=== PATIENT | female | born 1985 | race Caucasian/White ===

== ENCOUNTER 2018-07-18 19:14 | Emergency (ER) | payer OTHER, MEDICAID, SELFPAY ==
[2018-07-18 19:37] VITALS: BP 156/103; PULSE 122; RESP 16; TEMP 36.4; O2SAT 100; BMI 57.7
--- NOTE | 2018-07-18 19:46 | DI.CT.S_ITS ---
PROCEDURE: CT HEAD/BRAIN WO CON INDICATIONS: sudden headache,dizzy,blurred vision TECHNIQUE: Noncontrast 4.5 mm thick angled axial sections acquired from the foramen magnum to the vertex, with coronal and sagittal reformats. For radiation dose reduction, the following was used: automated exposure control, adjustment of mA and/or kV according to patient size. COMPARISON: None. FINDINGS: Image quality: Excellent. CSF spaces: Basal cisterns are patent. No extra-axial fluid collections. Ventricles are normal in size and shape. Brain: No midline shift. No intracranial masses or hemorrhage. Mcclain-white matter interface is normal. Skull and face: Calvarium and visualized facial bones are intact, without suspicious lesions. Sinuses: Visualized sinuses and mastoids are clear. IMPRESSION: No acute intracranial process. Dictated by: Martin Graf M.D. on 07/18/2018 at 20:04 Approved by: Martin Graf M.D. on 07/18/2018 at 20:06
--- NOTE | 2018-07-18 20:17 | ED_ITS ---
HPI - Headache <DARRICK Ruelas Last Filed: 07/18/18 22:52> General Chief Complaint: Headache Stated Complaint: blurry vision right eye,nausea Time Seen by Provider: 07/18/18 20:34 Source: patient Mode of arrival: ambulatory Limitations: no limitations History of Present Illness HPI Narrative: This 33-year-old female was normal until this afternoon. She was at work and states that she suddenly felt a weird headache on the right side of her head. She states that she felt foggy, and the right side of her face felt numb. She states that she was able to see letters, but felt like she could not comprehend. She got up and left her class and started driving home, then states that she could not see anything from her right eye only. She states that headache began to progress, so she came here. She states that the right side of her face has remained numb. She states that she can feel on that side but feels tingly. She denies any facial weakness, difficulty talking or swallowing. She has not had any weakness or in her extremities. She states that she does have a history of migraines, has only had to and the last 1 was 3 years ago. She states that she did have vision loss and light sensitivity with that, but this seems different. She does have nausea but no vomiting as with her previous migraines. She states that she has not had any recent illness or fevers. She does not have any tinnitus or other new complaints. Related Data Allergies Allergy/AdvReac Type Severity Reaction Status Date / Time bee venom protein (honey bee) Allergy Severe Anaphylaxis Verified 07/18/18 21:17 ibuprofen [IBUPROFEN] Allergy Severe Anaphylaxis Unverified 07/18/18 21:09 Review of Systems <Shonna Tabares PA-C - Last Filed: 07/18/18 22:52> Review of Systems ROS Unobtainable: All systems reviewed & are unremarkable except as noted in HPI and below PFSH <DARRICK Ruelas Last Filed: 07/18/18 22:52> Comment: Never smoker Exam <DARRICK Ruelas Last Filed: 07/18/18 22:52> Narrative Exam Narrative: GENERAL APPEARANCE: Patient resting comfortably, in no distress. HEENT: PERRL, EOMI, fundi not visible with undilated pupils, vasculature benign from what I can visualize, visual elliott are grossly intact by confrontation but she appears to have some right superior field deficit when looking at objects directly in front of her. Vision: 20/20 OS, 20/30 OU, unable to assess OD normal TMs and oropharynx, no sinus TTP NECK: Supple LUNGS: Clear to auscultation bilaterally. HEART: Rate and rhythm regular without murmur, normal S1 and S2, no S3 or S4. ABDOMEN: Soft, NT, ND, + BS x 4 quadrants NEUROLOGIC: Alert and oriented, normal speech, and coordination. MUSCULOSKELETAL: Full Csp AROM Initial Vital Signs Initial Vital Signs: Vital Signs Temperature 97.5 F L 07/18/18 19:37 Pulse Rate 122 H 07/18/18 19:37 Respiratory Rate 16 07/18/18 19:37 Blood Pressure 156/103 H 07/18/18 19:37 Pulse Oximetry 100 07/18/18 19:37 <Summer Rehman MD - Last Filed: 07/19/18 04:32> Initial Vital Signs Initial Vital Signs: Vital Signs Temperature 97.5 F L 07/18/18 19:37 Pulse Rate 122 H 07/18/18 19:37 Respiratory Rate 16 07/18/18 19:37 Blood Pressure 156/103 H 07/18/18 19:37 Pulse Oximetry 100 07/18/18 19:37 Course <Shonna Tabares PA-C - Last Filed: 07/18/18 22:52> Additional Information: I reviewed patient's exam findings, labs, and CT with Dr. Rehman who agrees most likely atypical migraine given her photophobia, nausea, and the acuity. Patient reported resolution of nausea, then headache starting to improve at the time of d/c. She did not have any vomiting and felt that she would be able to rest at home. Advised on the need for return if acutely worsening symptoms or new symptoms again, and discussed the importance outpatient follow-up, to evaluate for other headache sources, and she is agreeable Orders Ordered: ED Orders 07/18/18 19:46 CT head/brain wo con Stat 07/18/18 20:55 C-Reactive Protein Quant Stat Complete Blood Count AUTO DIFF Stat Comprehensive Metabolic Panel Stat Erythrocyte Sedimentation Rate Stat Discontinued Medications Acetaminophen (Tylenol) 650 mg PO NOW ONE Stop: 07/18/18 22:09 Last Admin: 07/18/18 22:16 Dose: 650 mg Diphenhydramine HCl (Benadryl) 25 mg IV NOW ONE Stop: 07/18/18 22:09 Last Admin: 07/18/18 22:16 Dose: 25 mg Sodium Chloride (Normal Saline 0.9%) 1,000 mls @ 1,000 mls/hr IV BOLUS ONE Stop: 07/18/18 21:44 Last Infusion: 07/18/18 22:53 Dose: 0 mls/hr Admin: 07/18/18 21:11 Dose: 1,000 mls/hr Ketorolac Tromethamine (Toradol) 30 mg IV NOW ONE Stop: 07/18/18 20:46 Last Admin: 07/18/18 21:10 Dose: 30 mg Ondansetron HCl (Zofran) 4 mg IV NOW ONE Stop: 07/18/18 20:46 Last Admin: 07/18/18 21:10 Dose: 4 mg Vital Signs - 8 hr 07/18/18 21:10 07/18/18 22:09 Temperature 98.5 F Pulse Rate 94 H 101 H Respiratory Rate 17 19 Blood Pressure [Right Arm] 121/70 132/58 L Pulse Oximetry 100 99 <Summer Rehman MD - Last Filed: 07/19/18 04:32> Orders Ordered: ED Orders 07/18/18 19:46 CT head/brain wo con Stat 07/18/18 20:55 C-Reactive Protein Quant Stat Complete Blood Count AUTO DIFF Stat Comprehensive Metabolic Panel Stat Erythrocyte Sedimentation Rate Stat Discontinued Medications Acetaminophen (Tylenol) 650 mg PO NOW ONE Stop: 07/18/18 22:09 Last Admin: 07/18/18 22:16 Dose: 650 mg Diphenhydramine HCl (Benadryl) 25 mg IV NOW ONE Stop: 07/18/18 22:09 Last Admin: 07/18/18 22:16 Dose: 25 mg Sodium Chloride (Normal Saline 0.9%) 1,000 mls @ 1,000 mls/hr IV BOLUS ONE Stop: 07/18/18 21:44 Last Infusion: 07/18/18 22:53 Dose: 0 mls/hr Admin: 07/18/18 21:11 Dose: 1,000 mls/hr Ketorolac Tromethamine (Toradol) 30 mg IV NOW ONE Stop: 07/18/18 20:46 Last Admin: 07/18/18 21:10 Dose: 30 mg Ondansetron HCl (Zofran) 4 mg IV NOW ONE Stop: 07/18/18 20:46 Last Admin: 07/18/18 21:10 Dose: 4 mg Vital Signs - 8 hr 07/18/18 21:10 07/18/18 22:09 Temperature 98.5 F Pulse Rate 94 H 101 H Respiratory Rate 17 19 Blood Pressure [Right Arm] 121/70 132/58 L Pulse Oximetry 100 99 MDM - Headache <Shonna Tabares PA-C - Last Filed: 07/18/18 22:52> Lab Data Attestation: I reviewed the patient's lab results. Result diagrams: 07/18/18 20:55 07/18/18 20:55 Lab Results 07/18/18 07/18/18 Range/Units 20:55 20:55 WBC 7.5 (4.5-11.0) X10^3/uL RBC 4.55 (4.0-5.2) X10^6/uL Hgb 13.0 (12.0-16.0) g/dL Hct 39.0 (36-46) % MCV 85.7 (80-100) fL MCH 28.6 (26-34) PG MCHC 33.4 (30-36) % RDW 13.8 (11.6-14.8) % Plt Count 280 (150-400) X10^3/uL Neut % (Auto) 59.0 (50-75) % Lymph % (Auto) 31.1 (25-40) % Emmons % (Auto) 5.5 (3-14) % Eos % (Auto) 3.6 (2-4) % Baso % (Auto) 0.8 (0-2) % Neut # (Auto) 4400 (3294-9040) /uL Lymph # (Auto) 2300 (3182-4814) /uL Emmons # (Auto) 400 (0-900) /uL Eos # (Auto) 300 (0-450) /uL Baso # (Auto) 100 (0-100) /uL ESR 25 H (0-20) MM/HR Sodium 140 (137-145) mmol/L Potassium 4.0 (3.4-5.1) mmol/L Chloride 105 (98-107) mmol/L Carbon Dioxide 25 (22-32) mmol/L BUN 15 (7-17) mg/dL Creatinine 0.70 (0.52-1.04) mg/dL Estimated GFR > 60.0 (>60) mL/min BUN/Creatinine Ratio 21.4 (6-22) Glucose 101 H (70-100) mg/dL Calcium 9.3 (8.4-10.2) mg/dL Total Bilirubin 0.3 (0.2-1.3) mg/dL AST 29 (14-36) IU/L ALT 51 (9-52) IU/L Alkaline Phosphatase 78 (38-126) U/L C-Reactive Protein 1.1 H (<1.0) mg/dL Total Protein 7.6 (6.3-8.2) g/dL Albumin 4.3 (3.5-5.0) g/dL Globulin 3.3 (1.7-4.1) g/dL Albumin/Globulin Ratio 1.3 (1.0-2.8) Imaging Data CT scan - head: Radiologist's impression: View [place] [address] CT Scan Report Signed Patient: Sofía Shannon MR#: [id number] : 1985 Acct:[id number] Age/Sex: 33 / F Date of Service: 07/18/18 Loc: ED Accession Number: [id number] Procedure: CT head/brain wo con Ordering Provider: Shonna Tabares P.A-C PROCEDURE: CT HEAD/BRAIN WO CON INDICATIONS: sudden headache,dizzy,blurred vision TECHNIQUE: Noncontrast 4.5 mm thick angled axial sections acquired from the foramen magnum to the vertex, with coronal and sagittal reformats. For radiation dose reduction, the following was used: automated exposure control, adjustment of mA and/or kV according to patient size. COMPARISON: None. FINDINGS: Image quality: Excellent. CSF spaces: Basal cisterns are patent. No extra-axial fluid collections. Ventricles are normal in size and shape. Brain: No midline shift. No intracranial masses or hemorrhage. Mcclain-white matter interface is normal. Skull and face: Calvarium and visualized facial bones are intact, without suspicious lesions. Sinuses: Visualized sinuses and mastoids are clear. IMPRESSION: No acute intracranial process. Dictated by: Martin Graf M.D. on 07/18/2018 at 20:04 Approved by: Martin Graf M.D. on 07/18/2018 at 20:06 <Summer Rehman MD - Last Filed: 07/19/18 04:32> Lab Data Lab Results 07/18/18 07/18/18 Range/Units 20:55 20:55 WBC 7.5 (4.5-11.0) X10^3/uL RBC 4.55 (4.0-5.2) X10^6/uL Hgb 13.0 (12.0-16.0) g/dL Hct 39.0 (36-46) % MCV 85.7 (80-100) fL MCH 28.6 (26-34) PG MCHC 33.4 (30-36) % RDW 13.8 (11.6-14.8) % Plt Count 280 (150-400) X10^3/uL Neut % (Auto) 59.0 (50-75) % Lymph % (Auto) 31.1 (25-40) % Emmons % (Auto) 5.5 (3-14) % Eos % (Auto) 3.6 (2-4) % Baso % (Auto) 0.8 (0-2) % Neut # (Auto) 4400 (8009-6041) /uL Lymph # (Auto) 2300 (6523-2417) /uL Emmons # (Auto) 400 (0-900) /uL Eos # (Auto) 300 (0-450) /uL Baso # (Auto) 100 (0-100) /uL ESR 25 H (0-20) MM/HR Sodium 140 (137-145) mmol/L Potassium 4.0 (3.4-5.1) mmol/L Chloride 105 (98-107) mmol/L Carbon Dioxide 25 (22-32) mmol/L BUN 15 (7-17) mg/dL Creatinine 0.70 (0.52-1.04) mg/dL Estimated GFR > 60.0 (>60) mL/min BUN/Creatinine Ratio 21.4 (6-22) Glucose 101 H (70-100) mg/dL Calcium 9.3 (8.4-10.2) mg/dL Total Bilirubin 0.3 (0.2-1.3) mg/dL AST 29 (14-36) IU/L ALT 51 (9-52) IU/L Alkaline Phosphatase 78 (38-126) U/L C-Reactive Protein 1.1 H (<1.0) mg/dL Total Protein 7.6 (6.3-8.2) g/dL Albumin 4.3 (3.5-5.0) g/dL Globulin 3.3 (1.7-4.1) g/dL Albumin/Globulin Ratio 1.3 (1.0-2.8) Discharge Plan Departure Patient Disposition: Home Clinical Impression: Monocular visual disturbance, Headache, Facial nerve sensory disorder Discharge Date/Time: 07/18/18 22:54 Interventions: ED Discharge Assessment Last Done: 07/18/18 22:53 Instructions: DI for Headache, DI for Numbness/tingling, DI for Visual Field Disturbances Activity Restrictions/Additional Instructions: You should return as we talked about if you have any acutely worsening symptoms , i.e. acutely worsening headache, protracted vomiting, or new symptoms such as fever, or actual weakness in your face or elsewhere, difficulty swallowing, talking, etc. Otherwise, you should call your insurance 1st thing in the morning to let them know your in the emergency room and do need urgent local follow-up. You may wish to call the [facility] clinic here in [place] to see whether they take your insurance as well, sometimes they are able to see new patients quickly. Address: [address] [place] [id number] This headache could very well be a migraine that is just somewhat different from your previous ones. It has several features of migraines, and eye symptoms and vision change like you had this evening can happen with them. There are also some disorders of the facial nerves and brain that can cause some of the symptoms (i.e. a condition called pseudotumor cerebri), so it is important that you follow-up closely, especially if your symptoms do not resolve with rest, so that further testing can be ordered. Your head scan tonight did not show any acute problem, but sometimes different types of studies are needed depending upon any persistent symptoms that you have
[2018-07-18 21:10] VITALS: BP 121/70; PULSE 94; RESP 17; O2SAT 100
[2018-07-18 21:10] LABS: Add Manual Diff / Slide Review NO; Basophils Absolute Auto 100 /uL (0-100); Basophils Percent Auto 0.8 % (0-2); Eosinophils Absolute Auto 300 /uL (0-450); Eosinophils Percent Auto 3.6 % (2-4); Lymphocytes Absolute Auto 2300 /uL (1100-4500); Lymphocytes Percent Auto 31.1 % (25-40); Mean Corpuscular HGB Conc 33.4 % (30-36); Mean Corpuscular Hemoglobin 28.6 PG (26-34); Mean Corpuscular Volume 85.7 fL (80-100); Monocytes Absolute Auto 400 /uL (0-900); Monocytes Percent Auto 5.5 % (3-14); Neutrophils Absolute Auto 4400 /uL (1500-7000); Platelet Count 280 X10^3/uL (150-400); Red Blood Cell Count 4.55 X10^6/uL (4.0-5.2); Red Cell Distribution Width 13.8 % (11.6-14.8); White Blood Cell Count 7.5 X10^3/uL (4.5-11.0)
[2018-07-18] MEDS: ONDANSETRON 4 MG/2 ML INJ IV (21:10)
[2018-07-18] MEDS: KETOROLAC 60 MG/2 ML VIAL 30 MG IV (21:10)
[2018-07-18] MEDS: SODIUM CHLORIDE 0.9% 1,000 ML 1000 ML IV (21:11)
[2018-07-18 21:19] LABS: Alanine Aminotransferase 51 IU/L (9-52); Albumin 4.3 g/dL (3.5-5.0); Albumin Globulin Ratio 1.3 (1.0-2.8); Alkaline Phosphatase 78 U/L (38-126); Aspartate Aminotransferase 29 IU/L (14-36); BUN Creatinine Ratio 21.4 (6-22); Bilirubin Total 0.3 mg/dL (0.2-1.3); Blood Urea Nitrogen 15 mg/dL (7-17); C-Reactive Protein Quant 1.1 mg/dL (<1.0); Calcium 9.3 mg/dL (8.4-10.2); Carbon Dioxide 25 mmol/L (22-32); Chloride 105 mmol/L (98-107); Estimated Glomerular Filt Rate > 60.0 mL/min (>60); Globulin 3.3 g/dL (1.7-4.1); Glucose 101 mg/dL (70-100); HEMOLYSIS 17 (0-50); Sodium 140 mmol/L (137-145); Total Protein 7.6 g/dL (6.3-8.2)
[2018-07-18 21:33] LABS: Erythrocyte Sedimentation Rate 25 MM/HR (0-20)
[2018-07-18 22:09] VITALS: BP 132/58; PULSE 101; RESP 19; TEMP 36.9; O2SAT 99
[2018-07-18] MEDS: diphenhydrAMINE 50 MG/ML VIAL 25 MG IV (22:16)
[2018-07-18] MEDS: ACETAMINOPHEN 325 MG TABLET 650 MG PO (22:16)
== END 2018-07-18 22:54 | disposition home or self-care (01) ==
PROVIDERS: Emergency Provider Internal Medicine; Family Provider Family Medicine; PCP Family Medicine
DX: H53.9 Unspecified visual disturbance (principal); R51 Headache
CPT/HCPCS: 36591; 70450; 80053; 85025; 85651; 86140; 96361; 96374; 96375; 99283; 99284; J1200; J1885; J2405